=== PATIENT | female | born 1960 ===

== ENCOUNTER 2016-05-16 09:14 | Day surgery (SDC) | payer MEDICAID ==
[2016-04-30 11:32] VITALS: BMI 35.4
[2016-05-16] MEDS ORDERED: ceFAZolin IV 1 gm in Dextrose 100 ML IVPB ONE (11:07)
[2016-05-16] MEDS ORDERED: Bupivacaine/Epi 0.25%-1:200,000 10 ml PF inj IJ ONE ×2 (11:07→14:33)
[2016-05-16] MEDS ORDERED: Lidocaine 1% Inj (20ml) ONE ×2 (11:07→14:36)
[2016-05-16] MEDS ORDERED: Midazolam 2 MG/2 ML VIAL ONE (11:18)
[2016-05-16] MEDS ORDERED: Lactated Ringer's 1,000 ML IV ONE ×5 (11:20→16:05)
[2016-05-16] MEDS ORDERED: Propofol 10 mg/ml Inj (20 ML) ONE (11:21)
[2016-05-16] MEDS ORDERED: Rocuronium 10 mg/ml (5 ml) ONE (12:14)
[2016-05-16] MEDS ORDERED: Succinylcholine Chloride 20 mg/ml Syr (5 ml) IV ONE (12:14)
[2016-05-16] MEDS ORDERED: Lidocaine 2% Inj (20ml) ONE (14:34)
[2016-05-16] MEDS ORDERED: Dexamethasone 4 mg/1 ml IVP PRN (15:48)
--- NOTE | 2016-05-16 15:50 | PCM.SURG1 ---
Surgeon's Initial Post Op Note - Surgeon's Notes Surgeon: Dr. Abbasi Flower Shop Laborer/Designer: Dr. Glass PGY1; Mable VERDE Type of Anesthesia: General Endo Pre-Operative Diagnosis: recurrent incisional hernia Operative Findings: see dictation Post-Operative Diagnosis: same Operation Performed: robot-assisted laparoscopic incisional hernia repair w/ mesh Specimen/Specimens Removed: old mesh and hernia sac Estimated Blood Loss: EBL {In ML}: 15 Blood Products Given: N/A Drains Used: No Drains Post-Op Condition: Good Date of Surgery/Procedure: 05/16/16 Time of Surgery/Procedure: 11:30
[2016-05-16] MEDS ORDERED: Oxycodone/Acetaminophen 5/325 mg Tab PO PRN (15:52)
[2016-05-16] MEDS: HYDROmorphone 0.5 mg/0.5 ml ISec IVP PRN ×3 (15:53→16:38)
[2016-05-16] MEDS ORDERED: Lactated Ringer's 1,000 ML IV SCH (16:00)
[2016-05-16 18:27] VITALS: RESP 16; TEMP 97.8; O2SAT 95
[2016-05-16 19:16] VITALS: BP 112/60; PULSE 79
--- NOTE | 2016-05-17 21:00 | OP ---
PROCEDURE DATE: 05/16/2016 PREOPERATIVE DIAGNOSES: 1. Recurrent incisional hernia. 2. Morbid obesity. 3. Extensive postoperative adhesion POSTOPERATIVE DIAGNOSES: 1. Recurrent incisional hernia. 2. Morbid obesity. 3. Extensive postoperative adhesion. PROCEDURES: Robotic Extensive Lysis of Adhesion Robotic Incisional Hernia repair with mesh. Robotic Removal of part of the old mesh. SURGEON: Tamir Abbasi MD DATABASE ADMINISTRATION PROJECT MANAGER: BLADIMIR Joe. Mable was present from the beginning to the end of the procedure, helping in prepping and draping, placement of port, docking, undocking of the robot, and the closure of the wound. ANESTHESIA: General endotracheal tube anesthesia. ESTIMATED BLOOD LOSS: Around 50 mL. DRAINS: None. PATHOLOGY: Old mesh was sent for pathology. COMPLICATIONS: None. INTRAOPERATIVE FINDINGS: The patient had extensive postoperative adhesion and the patient also had a morbidly obese omentum and very small abdominal cavity with a large incisional hernia starting from the infraumbilical region up to the pubic symphysis. Due to morbid obesity and extensive adhesions, It took extra 60-80 min for routine procedure. INTRAOPERATIVE STEPS: This 56-year-old female diagnosed with recurrent incisional hernia and patient was also morbidly obese. The patient was consented for incisional hernia repair with the mesh, brought to the OR, placed supine on the operating. After induction of the anesthesia, the abdomen was prepped and draped in usual sterile fashion. A 5 mm incision was made in the left upper quadrant and using the Visiport technique, peritoneal cavity was entered. Pneumo was created. Another 3 ports was placed in the midline in the supraumbilical region, the right upper quadrant and the left flank region and robot was brought in and camera arm and arm 1 and arm 2 was docked. Through the console the post-extensive lysis of adhesion was done and it took approximately 60-80 minutes extra for extensive lysis of adhesion for the routine procedure. The incisional hernia was identified and the old mesh was removed, a part of it. The mesh appeared to be extremely attached to the fascia and to avoid further injury to the fascia, the part of the mesh was removed. Now the incisional hernial defect was closed in 2 layers with a #1 Prolene V-camron continuous sutures in 2 layers and after that the 20 x 10 cm large mesh was implanted and mesh was secured with a secure strap. After proper implantation of the mesh the robot was undocked. All the instruments were taken out and all the ports were taken out under vision. Pneumo was deflated. All the port sites were closed in 1 layer with 4-0 Monocryl and dry sterile dressing was applied. The patient tolerated the procedure well. Count of instrument was correct. There was no apparent complication. The patient was extubated in the OR, sent to the postanesthesia care unit in stable condition. Tamir Abbasi MD cc: [id number] TT: 05/17/2016 20:59:50 jn MTDD
== END 2016-05-16 19:19 | disposition home or self-care (01) ==
LOC: C.SDS 09:14
PROVIDERS: ATTEND Surgery Surgical Critical Care
DX: K43.2 Incisional hernia without obstruction or gangrene (principal); E66.01 Morbid (severe) obesity due to excess calories; K66.0 Peritoneal adhesions (postprocedural) (postinfection)
CPT/HCPCS: 49656; 82948; J0690; J1170; J1885; J2250; J2704; J3010; J7120

== ENCOUNTER 2016-08-10 17:29 | Emergency (ER) | payer OTHER ==
[2016-08-10 17:30] VITALS: BMI 35.4
[2016-08-10 18:21] LABS: RBC URINE 16 /hpf (0-3); URINE BACTERIA RARE (<OCC); URINE BILIRUBIN NEGATIVE (NEGATIVE); URINE BLOOD 1+ (NEGATIVE); URINE COLOR Yellow (YELLOW); URINE GLUCOSE (UA) 1+ mg/dL (Normal); URINE KETONE NEGATIVE (NEGATIVE); URINE LEUKOCYTE ESTERASE 3+ Leu/uL (Negative); URINE PROTEIN NEGATIVE (NEGATIVE); URINE UROBILINOGEN NORMAL mg/dL (0.2-1.0); WBC URINE 220 /hpf (0-5)
--- NOTE | 2016-08-10 18:42 | C.PDOC ---
History Of Present Illness Patient is a 56 y/o female that presents to the ED for evaluation of constant left flank pain radiating to the front for the last 3 days. Patient reports heavy feeling in the suprapubic region associated with dysuria. Pt also states that she developed fever today. Pt states that pain in constant in in nature, and denies any improvement or worsening of pain with change in position. Otherwise, denies any nausea, vomiting, diarrhea, hematuria, urinary frequency, or any other associated symptoms at this time. Time Seen by Provider: 08/10/16 18:11 Chief Complaint (Nursing): Back Pain History Per: Patient History/Exam Limitations: no limitations Onset/Duration Of Symptoms: Days (3), Persistent Current Symptoms Are (Timing): Still Present Quality Of Discomfort: "Pain" Associated Symptoms: None. denies: Incontinence, New Weakness, New Numbness Exacerbating Factor(s): Nothing Recent travel outside of the [place]: No Additional History Per: Patient Past Medical History Reviewed: Historical Data, Nursing Documentation, Vital Signs Vital Signs: Last Vital Signs Temp 100.1 F H 08/10/16 17:35 Pulse 106 H 08/10/16 17:35 Resp 16 08/10/16 17:35 BP 127/83 08/10/16 17:35 Pulse Ox 96 08/10/16 19:48 - Medical History PMH: Anxiety, Arthritis, Diabetes, HTN - [facility] Procedures INJECT/INFUSE NEC (08/01/12) Family History: States: Unknown Family Hx - Social History Hx Tobacco Use: No Hx Alcohol Use: No - Immunization History Hx Tetanus Toxoid Vaccination: No Hx Influenza Vaccination: No Hx Pneumococcal Vaccination: No Review Of Systems Except As Marked, All Systems Reviewed And Found Negative. Constitutional: Positive for: Fever Gastrointestinal: Positive for: Abdominal Pain (suprapubic). Negative for: Nausea, Vomiting, Diarrhea, Constipation Genitourinary: Positive for: Dysuria. Negative for: Frequency, Incontinence, Hematuria, Vaginal Bleeding Musculoskeletal: Positive for: Back Pain (left flank) Physical Exam - Physical Exam Appears: Non-toxic, No Acute Distress Skin: Normal Color, Warm, Dry Head: Atraumatic, Normacephalic Eye(s): bilateral: Normal Inspection, EOMI Neck: Normal ROM, Supple Chest: Symmetrical, No Tenderness Cardiovascular: Rhythm Regular, No Murmur Respiratory: Normal Breath Sounds, No Rales, No Rhonchi, No Wheezing Gastrointestinal/Abdominal: Soft, Tenderness (suprapubic), No Guarding, No Rebound, Other (obese abdomen) Back: No CVA Tenderness, No Vertebral Tenderness, Paraspinal Tenderness (mild lower) Extremity: Normal ROM Neurological/Psych: Oriented x3, Normal Speech, Normal Cognition ED Course And Treatment - Laboratory Results Result Diagrams: 08/10/16 18:45 08/10/16 18:45 Lab Interpretation: Abnormal (WBC normal, urine with WBC 220 and 3+ leukocyte esterase) O2 Sat by Pulse Oximetry: 96 (on RA) Pulse Ox Interpretation: Normal - CT Scan/US Abd & pelvis CT Other Rad Studies (CT/US): Read By Radiologist, Radiology Report Reviewed CT/US Interpretation: FINDINGS: Lower thorax: The heart is mildly enlarged. There is a small hiatal hernia. There is atelectasis and. scarring at the lung bases. ABDOMEN: Liver: There is fatty infiltration of the liver. Gallbladder and bile ducts: Gallbladder is partially distended. There may be small gallstones. Common bile duct is unremarkable. Pancreas: Pancreas is mildly atrophic with fatty replacement. Spleen: unremarkable. Adrenals: unremarkable. Kidneys and ureters: unremarkable. Stomach and bowel: Stomach is almost completely aerated empty Rotation is normal. There are. mildly distended small bowel loops in the midabdomen. There is no obstruction. Terminal ileum is. unremarkable. Appendix is unremarkable. There is moderate stool in the colon. Appendix: See above. PELVIS: Bladder: unremarkable. Reproductive: Uterus and adnexal structures are unremarkable. ABDOMEN and PELVIS: Intraperitoneal space: There is no free air or free fluid. Bones/ joints: .There are degenerative changes in the osseus structures. Soft tissues : There is inflammation and edema in the lower abdominal wall inferior to the umbilicus. Vasculature: There are calcified phleboliths. There is minimal atherosclerotic calcification in the. iliacs. Aorta is normal in caliber. Lymph nodes: There is no pathologic adenopathy. IMPRESSION: Fatty liver; possible gallstones; mild ileus, no obstruction; inflammation/edema in the. lower abdominal wall. Additional findings as described above. Progress Note: Labs, abd & pelvis CT ordered and reviewed. Patient was given Rocephin, and Tylenol in the ER. Reevaluation Time: 19:54 Reassessment Condition: Improved Disposition - Disposition Referrals: Louie Ambrocio MD [Family Provider] - Disposition: HOME/ ROUTINE Disposition Time: 19:54 Condition: STABLE Prescriptions: Nitrofurantoin Macrocrystals [Macrobid] 1 cap PO BID #14 cap Instructions: Urinary Tract Infection in Women (ED) Print Language: MONGOLIAN - Clinical Impression Clinical Impression: UTI (urinary tract infection) - Scribe Statement The provider has reviewed the documentation as recorded by the Maryanneibzack Nunez All medical record entries made by the Maryanneibzack were at my direction and personally dictated by me. I have reviewed the chart and agree that the record accurately reflects my personal performance of the history, physical exam, medical decision making, and the department course for this patient. I have also personally directed, reviewed, and agree with the discharge instructions and disposition.
[2016-08-10] MEDS ORDERED: cefTRIAXone IV 1 gm in Dextros 50 ML IVPB ONE ×2 (18:50→19:35)
[2016-08-10 18:53] LABS: BASO % 0.5 % (0.0-2.0); EOS % 0.5 % (0.0-4.0); LYMPH # 1.3 K/uL (1.0-4.3); LYMPH % 15.6 % (20.0-40.0); MEAN CORPUSCULAR HEMOGLOBIN 29.8 pg (27.0-31.0); MEAN CORPUSCULAR HGB CONC 33.2 g/dL (33.0-37.0); MEAN PLATELET VOLUME 8.5 fL (7.2-11.7); MONO # 0.5 K/uL (0.0-0.8); NRBC % 0.1 % (0.0-2.0); RED CELL DISTRIBUTION WIDTH 14.5 % (11.5-14.5); WHITE BLOOD COUNT 8.3 K/uL (4.8-10.8)
[2016-08-10 19:05] LABS: CHLORIDE 98 mmol/L (98-107); POTASSIUM 4.3 mmol/L (3.6-5.2); SODIUM 135 mmol/L (132-148)
[2016-08-10 19:07] LABS: GFR AFRICAN-AMERICAN > 60
[2016-08-10 19:08] LABS: ALKALINE PHOSPHATASE 107 U/L (38-126); ALT/SGPT 35 U/L (9-52); AST/SGOT 27 U/L (14-36); BLOOD UREA NITROGEN 8 mg/dL (7-17); CARBON DIOXIDE 24 mmol/L (22-30); GLUCOSE,RANDOM 287 mg/dL (65-105)
[2016-08-10 19:09] LABS: CALCIUM 8.8 mg/dl (8.6-10.4)
--- NOTE | 2016-08-10 19:41 | CT ---
EXAM: CT Abdomen and Pelvis Without Intravenous Contrast CLINICAL HISTORY: 56 years old, female; Pain; Abdominal pain; Generalized; Additional info: Abd pain TECHNIQUE: Axial computed tomography images of the abdomen and pelvis without intravenous contrast. This CT exam was performed using one or more of the following dose reduction techniques: automated exposure control, adjustment of the mA and/or kV according to patient size, and/or use of iterative reconstruction technique. Coronal and sagittal reformatted images were created and reviewed. EXAM DATE/TIME: 08/10/2016 6:28 PM COMPARISON: There are no prior studies for comparison. FINDINGS: Lower thorax: The heart is mildly enlarged. There is a small hiatal hernia. There is atelectasis and scarring at the lung bases. ABDOMEN: Liver: There is fatty infiltration of the liver. Gallbladder and bile ducts: Gallbladder is partially distended. There may be small gallstones. Common bile duct is unremarkable. Pancreas: Pancreas is mildly atrophic with fatty replacement. Spleen: unremarkable Adrenals: unremarkable Kidneys and ureters: unremarkable Stomach and bowel: Stomach is almost completely aerated empty Rotation is normal. There are mildly distended small bowel loops in the midabdomen. There is no obstruction. Terminal ileum is unremarkable. Appendix is unremarkable. There is moderate stool in the colon. Appendix: See above. PELVIS: Bladder: unremarkable Reproductive: Uterus and adnexal structures are unremarkable. ABDOMEN and PELVIS: Intraperitoneal space: There is no free air or free fluid. Bones/joints: .There are degenerative changes in the osseus structures. Soft tissues: There is inflammation and edema in the lower abdominal wall inferior to the umbilicus Vasculature: There are calcified phleboliths. There is minimal atherosclerotic calcification in the iliacs. Aorta is normal in caliber. Lymph nodes: There is no pathologic adenopathy. IMPRESSION: Fatty liver; possible gallstones; mild ileus, no obstruction; inflammation/edema in the lower abdominal wall Additional findings as described above.
[2016-08-10 20:10] VITALS: BP 107/65; PULSE 67; RESP 20; TEMP 97.8; O2SAT 99
== END 2016-08-10 20:10 | disposition home or self-care (01) ==
LOC: C.ER 17:29
DX: N39.0 Urinary tract infection, site not specified (principal)
CPT/HCPCS: 74176; 80053; 81001; 85025; 87086; 87181; 96374; 99284; J0696

== ENCOUNTER 2016-09-16 06:30 | Emergency (ER) | payer OTHER ==
[2016-09-16 06:31] VITALS: BMI 35.4
[2016-09-16] MEDS ORDERED: Sodium Chloride 0.9% 1,000 ML IV ONE (07:27)
[2016-09-16 08:11] LABS: BASO # 0.1 K/uL (0.0-0.2); BASO % 0.7 % (0.0-2.0); EOS # 0.1 K/uL (0.0-0.7); EOS % 0.7 % (0.0-4.0); LYMPH # 1.8 K/uL (1.0-4.3); LYMPH % 23.2 % (20.0-40.0); MEAN CELL VOLUME 90.7 fL (81.0-99.0); MEAN CORPUSCULAR HEMOGLOBIN 30.4 pg (27.0-31.0); MEAN CORPUSCULAR HGB CONC 33.5 g/dL (33.0-37.0); MEAN PLATELET VOLUME 8.8 fL (7.2-11.7); MONO # 0.5 K/uL (0.0-0.8); MONO % 6.2 % (0.0-10.0); RED CELL DISTRIBUTION WIDTH 14.2 % (11.5-14.5); WHITE BLOOD COUNT 7.7 K/uL (4.8-10.8)
[2016-09-16 08:30] LABS: RBC URINE 4 /hpf (0-3); URINE BILIRUBIN NEGATIVE (NEGATIVE); URINE BLOOD NEGATIVE (NEGATIVE); URINE COLOR Yellow (YELLOW); URINE GLUCOSE (UA) 3+ mg/dL (Normal); URINE KETONE NEGATIVE (NEGATIVE); URINE LEUKOCYTE ESTERASE 2+ Leu/uL (Negative); URINE PROTEIN NEGATIVE (NEGATIVE); URINE UROBILINOGEN NORMAL mg/dL (0.2-1.0); WBC URINE 23 /hpf (0-5)
[2016-09-16 08:35] LABS: CHLORIDE 94 mmol/L (98-107)
[2016-09-16 08:36] LABS: POTASSIUM 4.2 mmol/L (3.6-5.2); SODIUM 137 mmol/L (132-148)
[2016-09-16 08:37] LABS: BILIRUBIN,TOTAL 0.8 mg/dL (0.2-1.3); GFR AFRICAN-AMERICAN > 60
[2016-09-16 08:38] LABS: ALB/GLOB RATIO 1.2 (1.0-2.1); ALKALINE PHOSPHATASE 113 U/L (38-126); ALT/SGPT 51 U/L (9-52); AST/SGOT 32 U/L (14-36); BLOOD UREA NITROGEN 7 mg/dL (7-17); CARBON DIOXIDE 29 mmol/L (22-30); GLUCOSE,RANDOM 316 mg/dL (65-105); TOTAL PROTEIN 6.8 g/dL (6.3-8.3)
--- NOTE | 2016-09-16 09:00 | C.PDOC ---
History Of Present Illness <Karen Dow - Last Filed: 09/18/16 10:33> <Lashay Lawrence - Last Filed: 09/19/16 15:34> 56 y/o female with PMHx of type DM II (takes Metformin), presents to the ED for evaluation of lightheadedness and dry mouth. Patient claims that her blood sugar level was over 400 this morning. She states she is complaint with Meformin. Patient denies chest pain, shortness of breath, abdominal pain, nausea/vomiting/diarrhea, headache, fever/chills. (Lashay Lawrence) <Karen Dow - Last Filed: 09/18/16 10:33> History Per: Patient History/Exam Limitations: no limitations Onset/Duration Of Symptoms: Hrs, Gradual Current Symptoms Are (Timing): Still Present Current Diabetic Medications: Oral Medication (Metformin) Associated Infectious Symptoms: denies: Cough, Sore Throat, Sinus Congestion, Dysuria, Urinary Urgency, Urinary Frequency, Nausea, Vomiting, Diarrhea Treatment Prior To Provider Evaluation: None Additional History Per: Patient <Lashay Lawrence - Last Filed: 09/19/16 15:34> Time Seen by Provider: 09/16/16 07:12 Chief Complaint (Nursing): High Blood Sugar Past Medical History Reviewed: Historical Data, Nursing Documentation, Vital Signs - Medical History PMH: Anxiety, Arthritis, Diabetes, HTN Family History: States: No Known Family Hx - Social History Hx Tobacco Use: No Hx Alcohol Use: No - Immunization History Hx Tetanus Toxoid Vaccination: No Hx Influenza Vaccination: No Hx Pneumococcal Vaccination: No <Lashay Lawrence - Last Filed: 09/19/16 15:34> Vital Signs: Last Vital Signs Temp 98.6 F 09/16/16 09:45 Pulse 73 09/16/16 09:45 Resp 20 09/16/16 09:45 BP 109/63 09/16/16 09:45 Pulse Ox 97 09/16/16 09:45 - [facility] Procedures INJECT/INFUSE NEC (08/01/12) Review Of Systems Except As Marked, All Systems Reviewed And Found Negative. Constitutional: Negative for: Fever, Chills ENT: Positive for: Other (dry mouth) Cardiovascular: Positive for: Light Headedness. Negative for: Chest Pain, Palpitations Respiratory: Negative for: Cough, Shortness of Breath Gastrointestinal: Negative for: Nausea, Vomiting, Abdominal Pain Genitourinary: Negative for: Dysuria, Frequency, Hematuria Neurological: Negative for: Headache, Dizziness <Lashay Lawrence - Last Filed: 09/19/16 15:34> Physical Exam - Physical Exam Appears: Well, Non-toxic, No Acute Distress Skin: Normal Color, Warm, Dry Head: Normacephalic Eye(s): bilateral: Normal Inspection Oral Mucosa: Moist Neck: Supple Cardiovascular: Rhythm Regular Respiratory: Normal Breath Sounds, No Rales, No Rhonchi, No Wheezing Gastrointestinal/Abdominal: Normal Exam, Bowel Sounds, Soft, No Tenderness Back: Normal Inspection, No CVA Tenderness Extremity: Normal ROM Neurological/Psych: Oriented x3 <Lashay Lawrence - Last Filed: 09/19/16 15:34> ED Course And Treatment - Laboratory Results Result Diagrams: 09/16/16 07:59 09/16/16 07:59 <Karen Dow - Last Filed: 09/18/16 10:33> - Laboratory Results Result Diagrams: 09/16/16 07:59 09/16/16 07:59 O2 Sat by Pulse Oximetry: 98 (RA) Pulse Ox Interpretation: Normal Progress Note: Plan: Blood work, urinalysis, urine culture ordered. Patient given IV NS bolus. Reevaluation Time: 10:00 Reassessment Condition: Improved (Patient reassessed, is resting comfortably and states she is feeling better. UA shows UTI- Patient given Cipro in ER and Rx for same. Repeat accucheck is 243, and blood work (-) for ketones. Patient instructed to follow up with PMD/clinic in 1-2 days. She understands she should return to ED if symptoms worsen.) <Lashay Lawrence - Last Filed: 09/19/16 15:34> Disposition - Disposition Disposition Time: 10:00 <aKren Dow - Last Filed: 09/18/16 10:33> <Lashay Lawrence - Last Filed: 09/19/16 15:34> - Disposition Referrals: Louie Ambrocio MD [Staff Provider] - Disposition: HOME/ ROUTINE Condition: STABLE Additional Instructions: SEGUIMIENTO CON HARRIS MDICO EN 1-2 HERNANDEZ USE EL MEDICAMENTO SEGN LO DIRIGIDO BEBER MUCHO LQUIDO DEVUELVA A LA JAIME DE EMERGENCIA SI LOS SNTOMAS EMPEORARAN Prescriptions: Ciprofloxacin [Cipro] 1 tab PO BID #14 tab Instructions: Urinary Tract Infection in Women (ED), Diabetic Hyperglycemia (ED ) Forms: [employer] (Italian) Print Language: ERITREAN - Clinical Impression Clinical Impression: Hyperglycemia, UTI (urinary tract infection) <Karen Dow - Last Filed: 09/18/16 10:33> - Scribe Statement The provider has reviewed the documentation as recorded by the Scribe <Lashay Lawrence - Last Filed: 09/19/16 15:34> - Scribe Statement Quinton Nunez All medical record entries made by the Scribe were at my direction and personally dictated by me. I have reviewed the chart and agree that the record accurately reflects my personal performance of the history, physical exam, medical decision making, and the department course for this patient. I have also personally directed, reviewed, and agree with the discharge instructions and disposition. (Lashay Lawrence) Addendum <Karen Dow - Last Filed: 09/18/16 10:33> <Lashay Lawrence - Last Filed: 09/19/16 15:34> Addendum: 09/18/16 10:33 Got Micro lab Urine culture report pos for E.Coli. Spoke with patient (tel. ). Patient sts she got Rx for Cipro and currently taking it. Urine culture shows that E.Coli is sensitive to Cipro. No further actions needed. ( Karen Dow)
[2016-09-16 09:48] VITALS: BP 109/63; PULSE 73; RESP 20; TEMP 98.6
[2016-09-19 15:33] VITALS: O2SAT 98
== END 2016-09-16 10:04 | disposition home or self-care (01) ==
LOC: C.ER 06:30
DX: E11.65 Type 2 diabetes mellitus with hyperglycemia (principal); Z79.84 Long term (current) use of oral hypoglycemic drugs; N39.0 Urinary tract infection, site not specified

== ENCOUNTER 2016-11-03 10:27 | Day surgery (SDC) | payer OTHER ==
[2016-11-03 11:15] VITALS: BMI 33.3
[2016-11-03] MEDS ORDERED: Propofol 10 mg/ml Inj (20 ML) ONE ×2 (12:47→13:09)
[2016-11-03] MEDS ORDERED: Lactated Ringer's 500 ML IV SCH (13:00)
[2016-11-03 13:41] VITALS: TEMP 97.8; O2SAT 100
[2016-11-03 14:37] VITALS: BP 119/69; PULSE 77; RESP 16
== END 2016-11-03 14:25 | disposition home or self-care (01) ==
LOC: C.ENDO 10:27
PROVIDERS: ATTEND Internal Medicine Gastroenterology
DX: K29.70 Gastritis, unspecified, without bleeding (principal); K21.9 Gastro-esophageal reflux disease without esophagitis; K59.00 Constipation, unspecified; K64.8 Other hemorrhoids; B96.81 Helicobacter pylori [H. pylori] as the cause of diseases classified elsewhere; K44.9 Diaphragmatic hernia without obstruction or gangrene
CPT/HCPCS: 43239; 45378; 82948; 88305; J2704; J7120